=== PATIENT | female | born 1955 | race Caucasian/White ===

== ENCOUNTER 2016-07-28 12:45 | Emergency (ER) | payer OTHER ==
[~2016-07-28] VITALS: Ht 167.6 cm; Wt 72.6 kg
--- NOTE | 2016-07-28 13:07 | ED GENERAL ADULT ---
History of Present Illness General Chief Complaint: Neck/Upper Back Pain/Injury Stated Complaint: NECK PAIN S/P WORK INJURY Source: patient Exam Limitations: no limitations Vital Signs & Intake/Output Vital Signs & Intake/Output Vital Signs Date Time Temp Pulse Resp B/P Pulse O2 O2 Flow FiO2 Ox Delivery Rate 07/28 1515 97.4 68 20 122/64 07/28 1450 97.4 07/28 1250 97.1 76 20 145/81 98 Room Air Allergies Coded Allergies: No Known Allergies (07/28/16) Reconcile Medications Cyclobenzaprine HCl 10 MG TABLET 1 TAB PO BID PRN PAIN Meloxicam (Mobic) 15 MG TABLET 1 TAB PO DAILY PRN PAIN Triage Note: PT TO ED C/O RIGHT SIDED NECK PAIN. 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 HAS NOT TAKEN OTC MEDS. Triage Nurses Notes Reviewed? yes Onset: Abrupt Duration: hour(s): Timing: recent history HPI: 07/28/16 60-year-old female presents to the emergency department complaining of neck pain. 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 She said the cots did not weigh very much but she had a sudden onset of severe right -sided neck pain. The onset of the symptoms were abrupt, the duration was just today, the severity is significant; as her symptoms required to come to the emergency department for care. She has no significant past medical history. No significant past surgical history. She denies any possibility of . She is not allergic to any medications. She takes only a statin for hyperlipidemia. On physical exam she does have right sided neck tenderness. She was placed in a soft collar and x-ray was ordered. Cyclobenzaprine and ibuprofen were given for pain. Past History Travel History Traveled to [place] past 21 day No Medical History Any Pertinent Medical History? see below for history Surgical History Surgical History: non-contributory Psychosocial History What is your primary language Taiwanese Tobacco Use: Never used ETOH Use: denies use Illicit Drug Use: denies illicit drug use Family History Hx Contributory? No Review of Systems Review of Systems Constitutional: Reports: no symptoms. EENTM: Denies: visual changes. Respiratory: Denies: short of breath. Cardiovascular: Denies: chest pain. GI: Denies: abdominal pain. Genitourinary: Reports: no symptoms. Musculoskeletal: Reports: neck pain. Skin: Denies: rash. Neurological/Psychological: Denies: weakness. Hematologic/Endocrine: Reports: no symptoms. Physical Exam Physical Exam General Appearance: alert, awake, anxious, mild distress Head: atraumatic, normal appearance Eyes: Bilateral: normal appearance, PERRL, EOMI. Ears, Nose, Throat: normal pharynx, normal ENT inspection Neck: normal inspection, limited range of motion, tender lateral, tender midline Respiratory: normal breath sounds, chest non-tender, no respiratory distress Cardiovascular: regular rate/rhythm Peripheral Pulses: 4+ radial (R), 4+ radial (L) Gastrointestinal: non-tender Back: decreased range of motion Extremities: normal inspection, normal range of motion Neurologic/Psych: no motor/sensory deficits, awake, alert, oriented x 3 Skin: intact, normal color, warm/dry Core Measures ACS in differential dx? No CVA/TIA Diagnosis: No Severe Sepsis Present: No Septic Shock Present: No Progress Differential Diagnoses I considered the following diagnoses in my evaluation of the patient: [Cervical strain, cervical radiculopathy, disc herniation, central cord syndrome-she has no weakness to chemical waste management technician strength] Plan of Care: Orders Procedure Date/time Status Durable Medical Equipment 07/28 1324 Active Initial ED EKG: none Departure Departure Disposition: HOME OR SELF CARE Condition: Stable Clinical Impression Primary Impression: Cervical strain Referrals: ROSSY PABON,YOLANDA Correa (PCP/Family) Departure Forms: Customer Survey Employee Industrial Accident General Discharge Information Prescriptions: Current Visit Scripts Cyclobenzaprine HCl 1 TAB PO BID PRN PAIN #20 TAB Meloxicam (Mobic) 1 TAB PO DAILY PRN PAIN #10 TAB Comments Cervical x-ray showing below IMPRESSION: 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 DICTATED BY: FLORES SHEEHAN MD DATE/TIME DICTATED:07/28/161421 CHEMICAL RESEARCH WORKER:NANI DATE/TIME TRANSCRIBED:07/28/161421 CONFIDENTIAL, DO NOT COPY WITHOUT APPROPRIATE AUTHORIZATION. <Electronically signed in Other Vendor System> SIGNED BY: FLORES SHEEHAN MD [id number] Critical Care Note Critical Care Note Critical Care Time: non-applicable
--- NOTE | 2016-07-28 14:40 | RADIOLOGY REPORT ---
EXAMINATION: XR CERVICAL SPINE CLINICAL INFORMATION: Neck pain after turning head. COMPARISON: None. TECHNIQUE: 3 views of the cervical spine. FINDINGS: Bone mineral density and vertebral body height is maintained without evidence of fracture or dislocation. No focal osseous lesions are seen. There is moderate loss of articular narrowing of the C1/C2 level on the left side with exuberant hypertrophic productive changes on the left side greater than right. Otherwise there is mild to moderate disc and joint space narrowing most notably C4/C5 level with mild broad-based disc osteophyte complex. Milder degenerative changes are identified at the other levels. 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
[2016-07-28 15:15] VITALS: BP 122/64
[2016-07-28] MEDS ORDERED: MOBIC15 M1 PO (15:18)
[2016-07-28] MEDS ORDERED: CYCLOBENZAPRINE10 M1 PO (15:18)
== END 2016-07-28 15:30 ==
LOC: ERH 12:45
DX: S16.1XXA Strain of muscle, fascia and tendon at neck level, initial encounter (principal); X58.XXXA Exposure to other specified factors, initial encounter
CPT/HCPCS: 72050